=== PATIENT | female | born 1940 | race Caucasian/White ===

== ENCOUNTER 2017-03-18 13:25 | Emergency (ER) | payer OTHER ==
[2017-03-18] MEDS ORDERED: NALOXONE 0.4 MG/1 ML VIAL ONE (13:32)
[2017-03-18] MEDS ORDERED: Sodium Chloride 0.9% 1,000 ML PRIMARY IV ONE ×4 (13:38→15:08)
[2017-03-18 13:50] LABS: HEMATOCRIT 38.1 % (37.0-47.0); HEMOGLOBIN 11.4 g/dL (12.0-16.0); MEAN CORPUSCULAR HEMOGLOBIN 27.9 PG (27-31); MEAN CORPUSCULAR HGB CONC 29.9 g/dL (33-37); MEAN CORPUSCULAR VOLUME 93.2 FL (81-99); MEAN PLATELET VOLUME 9.1 FL (7.4-12.2); RED BLOOD COUNT 4.09 10^6/uL (4.20-5.40)
[2017-03-18 14:00] LABS: PLATELET MORPHOLOGY COMMENT NORMAL MORPHOLOGY (NORM); WBC MORPHOLOGY COMMENT NORMAL MORPHOLOGY (NORM)
[2017-03-18 14:01] LABS: RBC MORPHOLOGY COMMENT SEE COMMENTS (NORM)
[2017-03-18 14:03] LABS: BAND NEUTROPHILS % 17 % (0-10); BASOPHILS % (MANUAL) 0 % (0-1); EOSINOPHILS % (MANUAL) 0 % (0-8); LYMPHOCYTES % (MANUAL) 2 % (10-50); MONOCYTES % (MANUAL) 3 % (0-12); NEUTROPHILS % (MANUAL) 78 % (50-80)
[2017-03-18 14:05] LABS: BLOOD UREA NITROGEN 48 mg/dL (7-22); CALCIUM 9.3 mg/dL (8.7-10.7)
[2017-03-18] MEDS ORDERED: cefTRIAXone Inj 2 GM in Sodium Chloride 0.9% 100 ML IV ONE (14:08)
--- NOTE | 2017-03-18 14:22 | DI ---
XR CXR 1VW,03/18/2017 1:36 PM: Clinical History: Dyspnea Previous Exam: August 13, 2016 Findings: A single frontal radiograph of the chest is obtained, and demonstrates a new density within the right lung apex. There is no infiltrate nor effusion. Result pattern noted overlying the chest. There is an electronic monitor noted over the chest as well. Impression: New density within the right lung apex. This is worrisome for neoplasm. This could also represent inf ection. Consider CT chest for further evaluation.
[2017-03-18] MEDS ORDERED: Sodium Chloride 0.9% 1,000 ML ONE (14:27)
[2017-03-18] MEDS ORDERED: NOREPINEPHRINE BITARTRATE 4 MG/4 ML VIAL IV ONE (14:27)
[2017-03-18] MEDS ORDERED: ROCURONIUM 10 MG/1 ML - 5 ML VIAL IVP ONE ×3 (14:40→15:05)
[2017-03-18] MEDS ORDERED: Norepinephrine Drip 8 MG in D5W 250 ML IV SCH (14:45)
[2017-03-18] MEDS ORDERED: ETOMIDATE 2 MG/1 ML - 20 ML IVP ONE (15:05)
[2017-03-18] MEDS ORDERED: metroNIDAZOLE 500mg (Premix) 500 MG in Premix 1 BAG IV ONE (15:24)
[2017-03-18 15:28] LABS: BILIRUBIN,URINE SMALL (NEG); CLARITY,URINE CLOUDY (CLEAR); COLOR,URINE YELLOW; GLUCOSE, URINE (UA) NEGATIVE (NEG); NITRATE,URINE NEGATIVE (NEG); OCCULT BLOOD,URINE NEGATIVE (NEG); PROTEIN,URINE 30 mg/dl (NEG); SQUAMOUS EPITHELIAL CELL,UR MANY; URINE CRYSTALS MANY; URINE SAMPLE TYPE CATH SPECIMEN
[2017-03-18 15:29] LABS: BACTERIA,URINE MANY
--- NOTE | 2017-03-18 15:47 | DI ---
XR CXR 1VW,03/18/2017 3:18 PM: Clinical History: Unresponsive patient. Central line placement. Previous Exam: Mar 18 2017 one hour prior. Findings: A single frontal radiograph of the chest is obtained, and and demonstrates a new central venous beltran ter with the tip in the superior vena cava. There is density noted within the right lung apex is noted on the prior exam. An endotracheal tube is noted with the tip in good position approximately 2 cm from the cheryl. Overlying subtle pattern noted. Impression: 1. New endotracheal tube with the tip in good position. 2. New central venous catheter with the tip in good position. 3. Stable density within the right lung apex infection versus neoplasm.
--- NOTE | 2017-03-18 15:52 | PDOC ---
Sepsis Event Note - Evaluation Sepsis Risk: Possible Severe Sepsis Risk Current Stage of Sepsis: Septic Shock Possible Source: Pulmonary, GI Tract /Intra-Abdominal - Focused Exam Date Exam was Performed: 03/18/17 Vital Signs: Vital Signs Temperature 96.6 F L 03/18/17 13:25 Pulse Rate 100 03/18/17 13:25 Respiratory Rate 44 H 03/18/17 13:25 Blood Pressure Pulse Ox Respiratory Exam: POSITIVE: Diminished Air Movement Cardiovascular Exam: POSITIVE: Tachycardia Peripheral Pulse Strength: 1+ Faint Peripheral Pulse Location: Radial Skin Exam: POSITIVE: Pale GI/Abdominal Exam: POSITIVE: Non Tender, Non Distended, Soft - Bedside Monitoring Date Bedside Monitoring was Performed: 03/18/17 Time Bedside Monitoring was Performed: 13:52
--- NOTE | 2017-03-18 15:57 | PDOC ---
Altered Mental Status HPI - General Chief Complaint: Altered Mental Status Stated Complaint: unresponsive Date Seen by Provider: 03/18/17 Time Seen by Provider: 13:54 Source: POSITIVE: EMS, Old records Exam Limitations: POSITIVE: Physical impairment Nurse's Notes Reviewed & Considered: Yes - History of Present Illness Initial Comments: Patient is a 76-year-old female who presents to the emergency department with altered mental status. Unable to obtain any history from patient given her state. Per medics they were called for altered level of consciousness. They found her not breathing well with a pulse. She did have some low blood pressure there and was hypoxic. They did use a bag valve mask with some improvement in her oxygenation. Otherwise history is limited secondary to altered mental status. - Patient Home Medications Home Medications: Home Medications Albuterol/Ipratrop Neb Soln [Duoneb Neb Soln] 3 ml NEB RTBID ampul.neb Aspirin 325 mg PO DAILY tab 08/22/16 Cyanocobalamin Inj [Vitamin B-12 Inj] 1,000 mcg IM Q30D vial 08/22/16 Thiamine HCl [Vitamin B-1] 100 mg PO DAILY tab 08/22/16 Acetaminophen [Tylenol] 2 tab PO TID tab 02/26/17 Budesonide/Formoterol Fumarate [Symbicort] 1 puff INH BID inh 02/26/17 Gabapentin 1 cap PO QD cap 02/26/17 Hydrocodone Bit/Acetaminophen [[place] 5-325 Tablet] 1 tab PO Q4H PRN tab Hydrocortisone 1 applic TOPICAL QD bottle 02/26/17 Ibuprofen 1 tab PO Q8H PRN tab 02/26/17 Melatonin 1 tab PO QD tab 02/26/17 Menthol [Biofreeze] 118 ml TOPICAL TID ml 02/26/17 Mirtazapine [Remeron] 1 tab PO QD tab 02/26/17 Risperidone 1 tab PO BID tab 02/26/17 Sodium Chloride Tab [Thermotabs] 1 each PO BID tab 02/26/[address] 1,000 Mg Softgel 1 each PO QD cap 02/27/17 Lisinopril 1 tab PO QD tab 02/27/17 Nicotine [Nicoderm Cq] 1 patch TRANSDERM DAILY #30 patch 02/27/17 Rivastigmine [Exelon] 4.6 mg TOPICAL DAILY patch 02/27/17 Ropinirole HCl 0.5 mg PO QHS tab 03/04/17 Ferrous Sulfate 325 mg PO DAILY #30 tab 03/14/17 Fentanyl 12 mcg TRANSDERM DAILY 03/18/17 - Patient Allergies Allergies/Adverse Reactions: Allergies Allergy/AdvReac Type Severity Reaction Status Date / Time No Known Allergies Allergy Verified 03/18/17 13:40 Past Medical History - heen HEENT History: Denies History Cardiovascular History: Hypertension Respiratory History: COPD, Emphysema Gastrointestinal History: Denies History Genitourinary History: Incontinence Endocrine History: Denies History Musculoskeletal History: Arthritis Neurological History: CVA, Dementia, Alzheimer's Blood Disorders: Anemia Psychiatric History: Denies History History of Sexually Transmitted Diseases: No Female Reproductive History: Denies History Obstetrical History: Denies History Cancer History: Denies History In Past Year Been Physically Harmed or Verbally Threatened: No History of MDRO: No History of Other Communicable Diseases: No Tobacco Use: Former Smoker Alcohol Use: Sober Substance Use Type: None Previous Surgical History: Yes Type / Date of Surgery: TOTAL HYSTERECTOMY Significant Family History: No pertinent family hx Past Medical History Reviewed: Reviewed - No Changes ROS - Limitations ROS Limitations: Clinical Condition (Unable to perform a review of systems secondary to mental status changes) Altered Mental Physical Exam - General Appearance General Appearance: POSITIVE: Moderate Distress, Other (Moaning and otherwise unresponsive) - HEENT HEENT: POSITIVE: Head Inspection Nml, Other (Small nonreactive pupils. Dry mucous membranes.) - Pupil Size Pupil Size: 2 mm: Bilateral - Neuro/Psych Neurological: POSITIVE: Other (Does not follow commands to assess full neurologic examination. Moaning. Minimal response to pain.) - Neck Neck: POSITIVE: Supple - Respiratory Respiratory: POSITIVE: Other (Course breath sounds bilaterally.) - Cardiovascular CVS: POSITIVE: Tachycardia - Abdomen Abdomen: Soft: (All Quadrants), Normal Bowel Sounds: (All Quadrants), No Guarding: (All Quadrants), No Rebound: (All Quadrants) - Skin Skin: POSITIVE: Other (Dry and pale.) - Extremities Extremity: Additional Extremities Details: No edema. Procedure - Central Line Time Placed: 15:30 Placed by Whom:: Dr. Alves Sterile Technique Used: Yes Central Line Site Prep (comment on type): Yes Central Line Site: Internal jugular (R) Central Line Lumen: Triple Local Anesthesia Used - Indicate Amt Used in Comment: Yes Lidocaine 1% (1ml) Ultrasound Guided: Yes Secured With Suture: Yes Central Line Placement Confirmation: Blood Return - All Ports, Chest XRay Post Procedure Chest X-Ray: Line in Position, No Pneumothorax Dressing Applied: By Provider Complications: none - Intubation Patient Intubated By:: Dr. Alves Time of Intubation: 15:18 Intubation Indications: Respiratory Failure, Airway Protection Intubation Preparation: Equipment Checked, Stress Analyst Applied, Cont. SpO2 Monitoring, BMV Set Up Pre-Oxygenation Provided: Assisted with BMV Induction Medications Given - Indicate Amount Given: Yes Etomidate (20) Paralytic Medication Given - Indicate Amount Given: Yes Rocuronium (100) Intubation Position: Cords Visualized Intubation Method: Orotracheal Tube Size (cm): 8.0 Number of Attempts: 1 Intubation Placement Confirmed: Capnometry: Yes, CO2 Detector Changed to Yellow : Yes, Mist Fogging in Tube: Yes, Symmetrical Chest Rise: Yes, Bilateral Breath Sounds: Yes, Chest X-Ray: Yes Tube Secured By:: RT Tube at Teeth (#): 22 Intubation Tube Placement Corrected: Yes Intubation Complications: No complications Altered Mental Status - Results Reviewed By Me Lab Results:: Laboratory Results 03/18/17 03/18/17 03/18/17 Range/Units 13:46 13:53 14:00 WBC 25.81 H (4.8-10.8) 10^3/uL RBC 4.09 L (4.20-5.40) 10^6/uL Hgb 11.4 L (12.0-16.0) g/dL Hct 38.1 (37.0-47.0) % MCV 93.2 (81-99) FL MCH 27.9 (27-31) PG MCHC 29.9 L (33-37) g/dL RDW Std Deviation 50.8 H (39-50) fL RDW Coeff of Dori 15.6 H (11.5-14.5) % Plt Count 275 (140-350) 10*3/uL MPV 9.1 (7.4-12.2) FL Neutrophils % (Manual) 78 (50-80) % Band Neutrophils % 17 H (0-10) % Lymphocytes % (Manual) 2 L (10-50) % Monocytes % (Manual) 3 (0-12) % Eosinophils % (Manual) 0 (0-8) % Basophils % (Manual) 0 (0-1) % Metamyelocytes % Not Reportable Myelocytes % Not Reportable Promyelocytes % Not Reportable Blast Cells Not Reportable WBC Morphology Comment Normal morphology (NORM) Plt Morphology Comment Normal morphology (NORM) RBC Morph Comment See comments (NORM) PT 10.6 (9.7-11.4) secs INR 1.03 (0.00-5.90) N/A Sodium 143 (135-145) meq/L Potassium 5.3 H (3.8-5.2) meq/L Chloride 97 L (98-112) meq/L Carbon Dioxide 30 (23-33) meq/L Anion Gap 16 (5-20) BUN 48 H (7-22) mg/dL Creatinine 1.5 H (0.50-1.20) mg/dL Estimated GFR Resident Care Manager BUN/Creatinine Ratio 32.00 H (6-20) Glucose 152 H (78-110) mg/dL Calculated Osmolality 311.0 H (267-292) mOsm/kg Lactic Acid 3.2 H (0.70-2.10) MMOL/L Calcium 9.3 (8.7-10.7) mg/dL Total Bilirubin 1.5 H (0.3-1.2) mg/dL AST 39 (8-39) IU/L ALT 38 (9-52) IU/L Alkaline Phosphatase 106 (38-126) IU/L Troponin I 0.214 H* (< 0.040) ng/mL Total Protein 6.5 (6.1-8.0) g/dL Albumin 3.0 L (3.5-4.8) g/dL Globulin 3.5 (2.50-4.10) g/dL Albumin/Globulin Ratio 0.80 L (1.3-2.0) mg/g Ur Collection Type Cath specimen Urine Color Yellow Urine Clarity Cloudy (CLEAR) Urine pH 5.0 (5.0-8.5) Ur Specific [place] 1.010 (1.005-1.030) Urine Protein 30 (NEG) mg/dl Urine Glucose (UA) Negative (NEG) mg/dL Urine Ketones Trace (NEG) Urine Occult Blood Negative (NEG) Urine Nitrate Negative (NEG) Urine Bilirubin Small (NEG) Urine Urobilinogen 1.0 (0.2) mg/dL Ur Leukocyte Esterase Negative (NEG) Urine RBC None (NONE) /hpf Urine WBC None (NONE) Ur Squamous Epith Cells Many (NONE) Ur Renal Epithelial Cell None (NONE) Urine Crystals Many Urine Bacteria Many (NONE) Urine Casts None Urine Mucus None (NONE) Urine Trichomonas None (NONE) Urine Yeast None (NONE) - Patient's Progress MDM / ED Course: Amber is a 76-year-old female who presents to the emergency department with altered mental status. Vital signs are notable for tachycardia and patient did have elevated respiratory rate and eventually became hypotensive. I am unable to obtain any history from patient to help her diagnosis. Differential diagnosis includes but is not limited to sepsis, septic shock, urinary tract infection, bleeding, pneumonia. Patient does not have focal neurologic deficits to suggest a CVA. Patient's chest x-ray does demonstrate findings consistent with a right upper lobe pneumonia. I compared this to old x-rays and appears to be new making this less likely a carcinoma. Patient's white blood cell count was elevated. EKG demonstrates nonspecific ST changes without evidence of acute ST elevation. Patient is in sinus rhythm. Her troponin was slightly elevated 0.2 I suspect that this is secondary to her underlying septic shock. A 30 mL per kilogram bolus of normal saline, cultures were obtained and urinalysis and urine cultures were obtained. Initially started on ceftriaxone 2 g. She is also given 500 mg of azithromycin and 500 mg of metronidazole for possible aspiration. Initially was monitored however history status. Be clinically worsening and her mental status was not improving with increased perfusion she was intubated for airway protection and for respiratory failure. A central line was placed after her 30 mL per kilogram bolus of normal saline was completed and patient continued to be hypotensive. She was started on Levaquin at 5 mics with improvement in her blood pressure. I also performed a bedside fast exam which demonstrated no free fluid or evidence of AAA. I spoke with the hospitalist here and recommended transfer to [place]. I spoke with ICU in [place] named accepted patient for further treatment. Patient was also given .4 mg of Narcan given fentanyl patches being on her list with small pupils however she had no response. I also spoke with patient's power of estate attorney who recommended to proceed with intubation and central line. Treatment: POSITIVE: Narcan Tube Placement Confirmation: POSITIVE: Breath Sounds Equal, Confirmed on CXR Antibiotics Given: Yes - Consult Consult (If Yes, Name of Consulting MD & Time Called): Yes Consulting MD will see pt:: POSITIVE: Recommended Transfer Counseled: POSITIVE: Family Patient Care Time - Estimated PCT Patient Care Time (In Minutes): 120 Vital Signs - Recent Vital Signs Vital Signs: Vital Signs (Last 8 hours) Temp Pulse Resp 03/18/17 13:25 96.6 F L 100 44 H - VS Reviewed Vital Signs Reviewed: Yes Critical Care Note - Critical Care Note Total Time (mins): 120 Critical Care: Shock Discharge Clinical Impression: Septic shock, Pneumonia Discharge Disposition: Transferred to Tertiary Care Facility Condition: Serious Date Decision to Transfer to Another Facility: 03/18/17 Time Decision to Transfer to Another Facility: 16:03
--- NOTE | 2017-03-18 16:19 | EKG ---
[address] [place] [address] Measurements Intervals [place] Rate: 84 P: 84 MN: 131 QRS: 81 QRSD: 102 T: -38 QT: 391 QTc: 432 Interpretive Statements SINUS RHYTHM MODERATE T-WAVE ABNORMALITY, CONSIDER ANTERIOR ISCHEMIA LOW VOLTAGE RIGHT ATRIAL ENLARGEMENT Compared to ECG 08/13/2016 12:10:51 T-wave abnormality now present Possible ischemia now presen Electronically Signed On 03-18-17 16:30:02 MDT by Gerber Patel [email or web address]
[2017-03-18 16:26] LABS: VENOUS PH 7.29 (7.32-7.42)
[2017-03-18 16:28] LABS: VENOUS PH 7.36 (7.32-7.42)
[2017-03-18 16:30] LABS: ABG BASE EXCESS -2 MMOL/L (-2-2); ABG OXYGEN SATURATION 94 % (90-100); ABG PCO2 50 MMHG (34-38); ABG PH 7.29 (7.35-7.45); ABG PO2 78 MMHG (65-75); ALLEN TEST N; COLLECTION SITE R RADIAL
[2017-03-18 16:53] VITALS: RESP 20; TEMP 98.7
== END 2017-03-18 16:11 | disposition short-term general hospital (02) ==
LOC: ER 13:25
DX: J18.9 Pneumonia, unspecified organism (principal); R65.21 Severe sepsis with septic shock; R00.0 Tachycardia, unspecified; G30.9 Alzheimer's disease, unspecified; F02.80 Dementia in other diseases classified elsewhere, unspecified severity, without behavioral disturbance, psychotic disturbance, mood disturbance, and anxiety; R41.82 Altered mental status, unspecified
CPT/HCPCS: 31500 ×2; 36415 ×2; 36600; 71010; 80053; 81001; 82803; 83605; 84484; 85007; 85610; 87077; 87088; 87186 ×2; 93005; 93010; 94003; 94660; 96361; 96365; 96367; 96375; 99291 ×2; 99292; J0456; J0696; J3490; J7030; J7050